=== PATIENT | female | born 1965 | race Two or more races ===

== ENCOUNTER 2017-05-15 18:46 | Inpatient (IN) | payer MEDICAID ==
[~2017-05-15] VITALS: Ht 175.3 cm; Wt 52.6 kg
[2017-05-15 19:35] LABS: Basophils # (auto) 0 uL; Basophils % (auto) 0.4 % (0.0-2.0); CONDITION Y; Eosinophils # (auto) 0 uL; Eosinophils % (auto) 0.7 % (0.0-7.0); Hematocrit 33.3 % (36.0-46.0); Hemoglobin 11.4 g/dL (12.2-16.2); Lymphocytes % (auto) 16.4 % (10.0-50.0); Mean Corpuscular Hemoglobin 30.3 pg (28.0-32.0); Mean Corpuscular Hgb Conc. 34.4 g/dL (32.0-36.0); Mean Corpuscular Volume 88.1 fL (80.0-100.0); Mean Platelet Volume 7.5 fL (7.4-10.4); Monocytes # (auto) 0.7 uL; Monocytes % (auto) 10.7 % (0.0-12.0); Neutrophils # (auto) 4.6 uL; Neutrophils % (auto) 71.8 % (37.0-80.0); Platelet Count (auto) 242 10^3/uL (140-450); Red Cell Distribution Width 14.6 % (11.6-16.0); White Blood Cell 6.4 10^3/uL (4.4-10.8)
[2017-05-15 19:52] LABS: INR 0.99 (0.9-1.15); Partial Thromboplastin Time 31.8 sec (22.64-33.71); Prothrombin Time 10.8 sec (9.37-12.3)
[2017-05-15 20:17] LABS: Albumin 3.9 g/dL (3.4-5.0); Alkaline Phosphatase 74 U/L (45-117); Anion Gap 12 (5-15); Aspartate Aminotransferase 16 U/L (15-37); BUN/Creatinine Ratio 15.9; Bilirubin, Total 0.3 mg/dL (0.2-1.0); Blood Urea Nitrogen 7 mg/dL (7-18); Calcium 8.1 mg/dL (8.5-10.1); Carbon Dioxide 21 mmol/L (21-32); Chloride 79 mmol/L (98-107); GFR African American 194 mL/min; GFR Non-African American 160 mL/min; Glucose 116 mg/dL (74-106); Magnesium 1.7 mg/dL (1.6-2.6); Potassium 3.4 mmol/L (3.5-5.1); Total Protein 6.8 g/dL (6.4-8.2)
[2017-05-15 20:20] LABS: Sodium 112 mmol/L (136-145)
[2017-05-15] MEDS ORDERED: SODIUM CHL 3% 500 ML IV ONE (21:15)
[2017-05-15 21:53] LABS: Urine RBC None Seen /hpf (0 - 4)
[2017-05-15 21:57] LABS: Urine Bilirubin Negative (Negative); Urine Blood Negative /uL (Negative); Urine Color Yellow (Yellow); Urine Glucose TRACE mg/dL (Normal); Urine Ketone 1+ (Negative); Urine Nitrite Negative (Negative); Urine Squamous Epithelial Cell FEW /hpf (<5); Urine Urobilinogen Normal (Negative); Urine pH 5.5 (5.0-8.0)
[2017-05-16] VITALS (14 sets, daily range): BP systolic 102–134; BP diastolic 44–88
[2017-05-16] MEDS ORDERED: MORPHINE SULF INJ 2 MG/ML SYRINGE 1ML IV PRN ×2 (03:00)
[2017-05-16] MEDS ORDERED: ACETAMINOPHEN 500 MG TAB PO PRN (03:00)
[2017-05-16] MEDS ORDERED: ONDANSETRON HCL 4 MG/2 ML VIAL IV PRN (03:00)
[2017-05-16] MEDS ORDERED: NITROGLYCERIN 0.4 MG SL TAB SL PRN (03:00)
[2017-05-16] MEDS: SODIUM CHLORIDE 0.9% 1,000 ML IV SCH ×3 (03:15→23:15)
[2017-05-16 03:48] LABS: Basophils # (auto) 0 uL; CONDITION Y; Eosinophils # (auto) 0 uL; Hematocrit 37.7 % (36.0-46.0); Hemoglobin 12.8 g/dL (12.2-16.2); Lymphocytes # (auto) 0.5 uL; Lymphocytes % (auto) 5.9 % (10.0-50.0); Mean Corpuscular Hemoglobin 30.2 pg (28.0-32.0); Mean Corpuscular Hgb Conc. 33.9 g/dL (32.0-36.0); Mean Corpuscular Volume 89.2 fL (80.0-100.0); Mean Platelet Volume 6.8 fL (7.4-10.4); Monocytes # (auto) 0.9 uL; Monocytes % (auto) 10.8 % (0.0-12.0); Neutrophils # (auto) 7.2 uL; Neutrophils % (auto) 83.3 % (37.0-80.0); Platelet Count (auto) 257 10^3/uL (140-450); Red Cell Distribution Width 14.5 % (11.6-16.0); White Blood Cell 8.7 10^3/uL (4.4-10.8)
[2017-05-16 04:05] LABS: Calcium 8.8 mg/dL (8.5-10.1); Potassium 3.5 mmol/L (3.5-5.1)
[2017-05-16 04:07] LABS: BUN/Creatinine Ratio 10.7
[2017-05-16] MEDS ORDERED: DOCU100C8 PO (12:22)
[2017-05-16] MEDS ORDERED: OLAN10TA29 PO (12:22)
[2017-05-16] MEDS ORDERED: QUET400T12 PO (12:22)
[2017-05-16] MEDS ORDERED: ASPI81TA27 PO (12:22)
[2017-05-16] MEDS: LORazepam 0.5 MG TAB PO PRN ×2 (14:29→21:20)
[2017-05-16] MEDS: HYDROcodone-ACET 5/325MG TAB PO PRN (14:30)
[2017-05-17 03:59] LABS: Potassium 3.1 mmol/L (3.5-5.1)
[2017-05-17 05:00] VITALS: BP 121/69
[2017-05-17 08:49] VITALS: BP 107/65
[2017-05-17] MEDS: SODIUM CHLORIDE 0.9% 1,000 ML IV SCH (09:44)
[2017-05-17] MEDS: HYDROcodone-ACET 5/325MG TAB PO PRN (09:56)
[2017-05-17 13:00] VITALS: BP 123/61
[2017-05-17 15:26] VITALS: BP 123/61
[2017-05-17 17:14] VITALS: BP 120/62
== END 2017-05-17 17:50 | disposition home or self-care (01) | DRG 425 ==
LOC: EDBD 18:46 → ER 19:05 → TELE 19:06 → ICU WEST 05-16 04:44 → TELE-WESTW 05-16 12:52
PROVIDERS: ADMIT Nurse Practitioner Family; ATTEND Internal Medicine Pulmonary Disease
DX: E87.1 Hypo-osmolality and hyponatremia (principal); G93.41 Metabolic encephalopathy; F32.9 Major depressive disorder, single episode, unspecified; F41.9 Anxiety disorder, unspecified; R62.50 Unspecified lack of expected normal physiological development in childhood; G80.9 Cerebral palsy, unspecified; E87.6 Hypokalemia; W01.0XXA Fall on same level from slipping, tripping and stumbling without subsequent striking against object, initial encounter; Y93.89 Activity, other specified; Y92.89 Other specified places as the place of occurrence of the external cause; Y99.8 Other external cause status
CPT/HCPCS: 36415; 51702; 70450; 71010; 80048; 80051; 80053; 81001; 83735; 83930; 83935; 84484; 85025; 85610; 85730; 87081; 93005; 94761; 96360; 96361

== ENCOUNTER 2017-11-01 16:01 | Inpatient (IN) | payer MEDICAID ==
[~2017-11-01] VITALS: Ht 167.6 cm; Wt 53.0 kg
[~2017-11-01 16:01] MED LIST: ASPI81TA27 PO; DOCU100C8 PO; OLAN10TA29 PO; QUET400T12 PO
[2017-11-01] MEDS ORDERED: SODIUM CHLORIDE 0.9% 1,000 ML IVB ONE (16:10)
[2017-11-01] MEDS ORDERED: LORazepam 2MG/ML-1ML VIAL ONE (16:18)
[2017-11-01] MEDS ORDERED: LORazepam 2MG/ML-1ML VIAL IV ONE (17:00)
[2017-11-01 17:02] LABS: Basophils # (auto) 0 uL; Basophils % (auto) 0.7 % (0.0-2.0); Eosinophils # (auto) 0.1 uL; Eosinophils % (auto) 1.9 % (0.0-7.0); Hematocrit 35.3 % (36.0-46.0); Hemoglobin 11.7 g/dL (12.2-16.2); Lymphocytes # (auto) 1.5 uL; Mean Corpuscular Hemoglobin 29.9 pg (28.0-32.0); Mean Corpuscular Hgb Conc. 33.2 g/dL (32.0-36.0); Mean Corpuscular Volume 90.1 fL (80.0-100.0); Monocytes # (auto) 0.6 uL; Monocytes % (auto) 10.6 % (0.0-12.0); Neutrophils # (auto) 3.2 uL; Neutrophils % (auto) 58.8 % (37.0-80.0); Nucleated Red Blood Cells % 0.1 %; Platelet Count (auto) 218 10^3/uL (140-450); Red Blood Cells 3.92 10^6/uL (4.0-5.20); Red Cell Distribution Width 14.5 % (11.8-14.3); White Blood Cell 5.4 10^3/uL (4.4-10.8)
[2017-11-01 17:15] LABS: Alanine Aminotransferase 21 U/L (13-56); Albumin 3.7 g/dL (3.4-5.0); Alkaline Phosphatase 93 U/L (45-117); Anion Gap 15 (5-15); Aspartate Aminotransferase 21 U/L (15-37); BUN/Creatinine Ratio 17.1; Bilirubin, Total 0.3 mg/dL (0.2-1.0); Blood Urea Nitrogen 12 mg/dL (7-18); Calcium 7.9 mg/dL (8.5-10.1); Carbon Dioxide 19 mmol/L (21-32); Chloride 83 mmol/L (98-107); GFR African American 113 mL/min; GFR Non-African American 94 mL/min; Glucose 142 mg/dL (74-106); Potassium 3.5 mmol/L (3.5-5.1); Total Protein 7.1 g/dL (6.4-8.2)
[2017-11-01 17:17] LABS: Lactic Acid w/Reflex 4.3 mmol/L (0.4-2.0)
[2017-11-01 17:19] LABS: INR 1.02 (0.9-1.15); Partial Thromboplastin Time 32.6 sec (22.64-33.71); Prothrombin Time 11.1 sec (9.37-12.3)
[2017-11-01 17:42] LABS: Sodium 117 mmol/L (136-145)
[2017-11-01] MEDS ORDERED: cefTRIAXone 1GM/10ml IVPUSH 10 ML IV ONE (18:00)
[2017-11-01] MEDS ORDERED: SODIUM CHL 3% 500 ML IV ONE ×2 (18:00→21:45)
[2017-11-01 19:22] LABS: Urine WBC None Seen /hpf (0 - 5)
[2017-11-01 19:43] LABS: Urine Bacteria NONE SEEN /hpf (None Seen); Urine Blood Negative /uL (Negative); Urine Specific Gravity 1.004 (1.001-1.035)
[2017-11-01 19:55] LABS: Alcohol, Urine < 3.0 mg/dL (0-5); Amphetamine Screen, Urine NEGATIVE (NEGATIVE); Barbiturate Scree,Urine NEGATIVE (NEGATIVE); Benzodiazephine Screen, Urine NEGATIVE (NEGATIVE); Cannabinoid Screen, Urine NEGATIVE (NEGATIVE); Cocaine Screen, Urine NEGATIVE (NEGATIVE); Opiate Scree,Urine NEGATIVE (NEGATIVE); Phencyclidine Screen, Urine NEGATIVE (NEGATIVE)
[2017-11-01] MEDS ORDERED: MORPHINE SULFATE 4 MG/ML SYR/VIAL IV PRN (21:45)
[2017-11-01] MEDS ORDERED: PANTOPRAZOLE 40 MG/10 ML VIAL IV ONE (21:45)
[2017-11-01] MEDS ORDERED: SODIUM CHLORIDE 0.9% 1,000 ML IV ONE (21:45)
[2017-11-01] MEDS ORDERED: NITROGLYCERIN 0.4 MG SL TAB SL PRN (21:45)
[2017-11-01] MEDS: LORazepam 2MG/ML-1ML VIAL IV PRN (22:19)
[2017-11-02] MEDS ORDERED: ACETAMINOPHEN 650 MG RECT SUPP PR ONE ×3 (04:00→14:45)
[2017-11-02] MEDS ORDERED: SODIUM CHLORIDE 0.9% 1,000 ML IV SCH (04:15)
[2017-11-02] MEDS ORDERED: SODIUM CHLORIDE 0.9% 1,000 ML IV ONE (05:30)
[2017-11-02] MEDS ORDERED: VANCOMYCIN PER PHARMACY 0 MG IV SCH (05:30)
[2017-11-02 06:01] LABS: Basophils # (auto) 0 uL; Basophils % (auto) 0.1 % (0.0-2.0); Eosinophils # (auto) 0 uL; Hemoglobin 12.3 g/dL (12.2-16.2); Lymphocytes # (auto) 0.5 uL; Lymphocytes % (auto) 7.7 % (10.0-50.0); Mean Corpuscular Hemoglobin 30.3 pg (28.0-32.0); Mean Corpuscular Hgb Conc. 33.2 g/dL (32.0-36.0); Mean Corpuscular Volume 91.3 fL (80.0-100.0); Monocytes % (auto) 15.6 % (0.0-12.0); Neutrophils # (auto) 5.1 uL; Neutrophils % (auto) 76.6 % (37.0-80.0); Platelet Count (auto) 231 10^3/uL (140-450); Red Blood Cells 4.05 10^6/uL (4.0-5.20); Red Cell Distribution Width 14.1 % (11.8-14.3); White Blood Cell 6.6 10^3/uL (4.4-10.8)
[2017-11-02 06:07] LABS: Albumin 3.8 g/dL (3.4-5.0); BUN/Creatinine Ratio 9.2; Potassium 3.6 mmol/L (3.5-5.1)
[2017-11-02 06:09] LABS: Bilirubin, Total 0.2 mg/dL (0.2-1.0); Total Protein 7.3 g/dL (6.4-8.2)
[2017-11-02] MEDS ORDERED: ACETAMINOPHEN 650 mg PER 20 mL UD ONE (08:21)
[2017-11-02] MEDS ORDERED: ACETAMINOPHEN 650 mg PER 20 mL UD PO PRN (08:30)
[2017-11-02] MEDS: ENOXAPARIN SOD 40 MG/0.4 ML SYRINGE SC SCH (09:05)
[2017-11-02] MEDS: cefTRIAXone 1GM/10ml IVPUSH 10 ML IV SCH (09:05)
[2017-11-02] MEDS: PANTOPRAZOLE 40 MG/10 ML VIAL IV SCH (09:05)
[2017-11-02] MEDS ORDERED: LEVOFLOXACIN 500MG 100 ML IV SCH (10:00)
[2017-11-02] MEDS: VANCOMYCIN 750 MG in D5W 5% 250 ML IV SCH ×2 (10:05→21:48)
[2017-11-02] MEDS ORDERED: DESMOPRESSIN ACET 4 MCG/1 ML AMPULE IV ONE (11:45)
[2017-11-02] MEDS: D5W/SOD CHL 0.45%/KCL 20MEQ 1,000 ML IV SCH ×2 (12:16→21:48)
[2017-11-02 14:41] LABS: Calcium 8.3 mg/dL (8.5-10.1); Potassium 3.5 mmol/L (3.5-5.1)
[2017-11-02 20:01] LABS: BUN/Creatinine Ratio 7.5; Calcium 8.3 mg/dL (8.5-10.1); Potassium 3.3 mmol/L (3.5-5.1)
[2017-11-02 23:23] LABS: Potassium 3.2 mmol/L (3.5-5.1)
[2017-11-02 23:24] LABS: BUN/Creatinine Ratio 7.1
[2017-11-03] VITALS (7 sets, daily range): BP systolic 105–131; BP diastolic 55–85
[2017-11-03] MEDS ORDERED: SODIUM CHLORIDE 0.9% 1,000 ML IV SCH (01:00)
[2017-11-03] MEDS ORDERED: POTASSIUM CHL 20MEQ/100ML 100 ML IV ONE (01:00)
[2017-11-03 07:07] LABS: Albumin 3.3 g/dL (3.4-5.0); Bilirubin, Total 0.4 mg/dL (0.2-1.0); Calcium 8.3 mg/dL (8.5-10.1); Potassium 3.4 mmol/L (3.5-5.1); Total Protein 6.6 g/dL (6.4-8.2)
[2017-11-03] MEDS: cefTRIAXone 1GM/10ml IVPUSH 10 ML IV SCH (09:39)
[2017-11-03] MEDS: VANCOMYCIN 750 MG in D5W 5% 250 ML IV SCH ×2 (09:40→22:00)
[2017-11-03] MEDS: PANTOPRAZOLE 40 MG/10 ML VIAL IV SCH (09:40)
[2017-11-03] MEDS: ENOXAPARIN SOD 40 MG/0.4 ML SYRINGE SC SCH (09:41)
[2017-11-03] MEDS ORDERED: DOXYCYCLINE 100 MG TAB/CAP PO ONE (10:30)
[2017-11-03 10:55] LABS: BUN/Creatinine Ratio 9.1; Calcium 8.5 mg/dL (8.5-10.1); Potassium 3.6 mmol/L (3.5-5.1)
[2017-11-03] MEDS ORDERED: D5W 5% 1,000 ML IV SCH (13:45)
[2017-11-03 15:27] LABS: BUN/Creatinine Ratio 6.3; Calcium 8.4 mg/dL (8.5-10.1); Potassium 3.5 mmol/L (3.5-5.1)
[2017-11-03] MEDS: POTASSIUM CHLORIDE 20 MEQ in D5W 5% 1,000 ML IV SCH (15:41)
[2017-11-03 18:18] LABS: Calcium 8.7 mg/dL (8.5-10.1); Potassium 3.2 mmol/L (3.5-5.1)
[2017-11-03 18:26] LABS: BUN/Creatinine Ratio 5.1
[2017-11-03 22:23] LABS: BUN/Creatinine Ratio 5.7; Calcium 8.8 mg/dL (8.5-10.1); Potassium 3.5 mmol/L (3.5-5.1)
[2017-11-04 03:59] VITALS: BP 121/69
[2017-11-04] MEDS: POTASSIUM CHLORIDE 20 MEQ in D5W 5% 1,000 ML IV SCH ×2 (06:44→16:16)
[2017-11-04 08:00] VITALS: BP 126/69
[2017-11-04] MEDS: VANCOMYCIN 750 MG in D5W 5% 250 ML IV SCH (10:33)
[2017-11-04] MEDS: PANTOPRAZOLE 40 MG/10 ML VIAL IV SCH (10:34)
[2017-11-04] MEDS: ENOXAPARIN SOD 40 MG/0.4 ML SYRINGE SC SCH (10:34)
[2017-11-04] MEDS: cefTRIAXone 1GM/10ml IVPUSH 10 ML IV SCH (10:34)
[2017-11-04 11:58] LABS: Calcium 8.7 mg/dL (8.5-10.1); Potassium 3.8 mmol/L (3.5-5.1)
[2017-11-04 12:00] VITALS: BP 122/86
[2017-11-04] MEDS: LORazepam 2MG/ML-1ML VIAL IV PRN (12:35)
[2017-11-04 14:30] VITALS: BP 122/86
[2017-11-04 16:00] VITALS: BP 114/77
[2017-11-07 13:45] LABS: Creatinine, Urine 10 mg/dL (30.0-125.0); Sodium Urine 85 mmol/L (40-220)
== END 2017-11-04 17:51 | DRG 720 ==
LOC: ER 16:01 → EDBD 16:01 → TELE 16:02 → DOU IN ICU 11-02 23:23
PROVIDERS: ADMIT Nurse Practitioner; ATTEND Internal Medicine
DX: A41.9 Sepsis, unspecified organism (principal); J69.0 Pneumonitis due to inhalation of food and vomit; G93.41 Metabolic encephalopathy; E87.1 Hypo-osmolality and hyponatremia; D64.9 Anemia, unspecified; F41.9 Anxiety disorder, unspecified; F32.9 Major depressive disorder, single episode, unspecified; G80.9 Cerebral palsy, unspecified; G37.2 Central pontine myelinolysis; R62.50 Unspecified lack of expected normal physiological development in childhood; Z79.82 Long term (current) use of aspirin; Z79.899 Other long term (current) drug therapy
CPT/HCPCS: 36415; 36600; 51702; 70450; 71045; 80048; 80053; 80202; 80307; 81001; 82570; 82805; 82962; 83605; 83735; 83935; 84133; 84295; 84300; 84484; 85025; 85610; 85730; 87040; 87081; 93005; 93971; 96361; 96365; 96375; 99291; C9113; J3480; J7060

== ENCOUNTER 2017-11-11 07:38 | Emergency (ER) | payer MEDICAID ==
[~2017-11-11] VITALS: Ht 157.5 cm; Wt 536.6 kg
[~2017-11-11 07:38] MED LIST changes: -OLAN10TA29 PO; -QUET400T12 PO
[2017-11-11 07:52] VITALS: BP 131/95
[2017-11-11] MEDS ORDERED: KETOROLAC TROMETH 60MG/2ML VIAL IM ONE (08:00)
== END 2017-11-11 08:58 | disposition home or self-care (01) ==
LOC: ER 07:38
DX: M10.072 Idiopathic gout, left ankle and foot (principal)
CPT/HCPCS: 73610; 96372; 99284; J1885